=== PATIENT | female | born 1960 | race Caucasian/White ===

== ENCOUNTER → 2020-05-14 13:35 | Outpatient (CLI) | payer OTHER, SELFPAY ==
[2020-05-14 16:14] LABS: Coronavirus 19 IgG Antibody Negative (Negative); Coronavirus 19 IgM Antibody Negative (Negative)
== END ==
PROVIDERS: Visit Provider Internal Medicine Gastroenterology
DX: Z01.818 Encounter for other preprocedural examination (principal); Z12.11 Encounter for screening for malignant neoplasm of colon; R10.9 Unspecified abdominal pain
CPT/HCPCS: 36415; 86328

== ENCOUNTER 2020-05-17 08:56 | Day surgery (SDC) | payer OTHER, SELFPAY ==
[2020-05-14 10:48] VITALS: BMI 20.1
[2020-05-17 09:11] VITALS: BP 129/70; PULSE 73; RESP 18; TEMP 36.5; O2SAT 98
--- NOTE | 2020-05-17 09:29 | P.PN_ITS ---
[facility] Anesthesia Checklist - Patient Identification Patient Identification: Arm Band, Verbal (Name & ) - Structural Data Admitted From: Home Planned Operative Procedure/s: Colonoscopy Consent for Planned Operative Procedure(s) Verified: Yes Verified Documents: Surgical Consent, History and Physical - NPO Status Verified Time NPO: 00:00 - Chart Verification Results Verified: None - Additional verifications Anesthesia Reactions: No - Airway Assessment C-Spine Mobility Assessed: Yes TMJ Mobility Assessed: Yes Dentition: Dentures-good fit (Upper) - Neurological Assessment Level of Consciousness: Awake, Alert, Appropriate, Follows Commands Hx Seizures: No Numbness or tingling in extremities: No - Anesthesia Plan Anesthesia Risk discussed: Yes Anesthesia Plan: Verified ASA Class: II Anesthesia Type: MAC [facility] History I have reviewed the patient's past medical history: Yes Medical History: Reports:: Asthma Denies:: Cancer, Diabetes Mellitus Type 1, Diabetes Mellitus Type 2, Internal Pacemaker, MRSA, Seizures *Have you ever received a pneumonia vaccine?: No *Have you received a flu vaccine this season?: Yes Anesthesia experience/problems:: None Other Surgeries: Yes: Hysterectomy-Partial, Tubal Ligation. No: Pacemaker Amputation: No Fractures: No - *Social History Last grade of school completed: Some college Smoking Status: Current every day smoker Tobacco Type: cigarettes # Packs/Day (cigarettes): 1 Alcohol Intake: never Substance Use Type: denies use *Occupational Status:: employed Housing: house Household Members: family *Travel in the last 8 weeks: None Family Hx:: Hypertension
[2020-05-17 09:33] VITALS: O2SAT 97
--- NOTE | 2020-05-17 10:01 | P.PCN_ITS ---
[facility] Procedure Note Procedure Note:: Colonoscopy Procedure Report: Colonoscopy with cold snare polypectomy and cold biopsies Endoscopist: Sarmad Leon II, MD Referring physician: Carlitos Ashraf MD Date of Procedure: May 17, 2020 Equipment: Olympus 180 variable stiffness pediatric colonoscope Sedation: MAC sedation Indication: Mrs. Ramirez is a 59-year-old female who is here for diagnostic colonoscopy. The patient has had crampy lower abdominal discomfort with urgency and primarily gassiness. She has had some change in bowel habits. She reports no rectal bleeding or weight loss. She has not seen any mucus with her stools. This began a couple of weeks ago and is beginning to subside. She has had prior hysterectomy. She reports no family history of colon cancer. This is her first colonoscopy. Procedure: Prior to the procedure, a history and physical exam was performed, and patient's medications and allergies were reviewed. The risks, benefits and alternatives of the sedation and procedure were discussed with the patient. All questions were answered and informed consent was obtained. The patient was brought to the procedure room. Patient identification and proposed procedure were verified by the physician and the nurse. The patient was placed in a left lateral decubitus position and the scope was passed under direct vision. Throughout the procedure, the patient's blood pressure, pulse, and oxygen saturations were monitored continuously. The colonoscopy was accomplished without difficulty. The patient tolerated the procedure well. Findings: On digital rectal examination there was normal rectal tone. There were no external hemorrhoids. The colonoscope was introduced through the anal canal to the rectum and advanced to the cecum. The ileocecal valve and appendiceal orifice were identified. The scope was advanced a short distance into the ileum which appeared grossly normal. The scope was then withdrawn into the colon. The cecum was normal. There were a total of 4 colon polyps (ascending x1 (4 mm), descending x1 (6 mm), sigmoid x1 (3-4 mm) and rectosigmoid x1 (5-6 mm)) which were all removed via cold snare polypectomy. There were extensive scattered diverticuli throughout the descending and sigmoid colon (LEFT colon). Within the sigmoid colon there was pericolonic adhesions and some evidence of haustral edema and luminal narrowing focally consistent with chronic sigmoid diverticulitis. Cold biopsies were taken in this region of focal chronic diverticulitis. The rectum itself was normal. Upon retroflexion within the rectum there were grade 1-2 internal hemorrhoids. The preparation was excellent throughout with [place] Preparation Score of 9. The cecal time was 13 minutes. Impression: 1. Diminutive colonic polyps x4 2. Extensive left-sided diverticulosis with evidence of chronic sigmoid diverticulitis 3. Grade 1-2 internal hemorrhoids Plan: I do feel that the patient's symptoms are secondary to chronic diverticulitis/spastic diverticular disease. We will discuss dietary measures, bulk fiber supplementation and probiotic therapy. I will follow up the polyp pathology and recommend repeat colonoscopy again in 5 years based upon the polyp histology.
[2020-05-17 10:05] VITALS: BP 138/60; PULSE 63; RESP 12; TEMP 36.4; O2SAT 99
[2020-05-17 10:15] VITALS: BP 140/54; PULSE 67; RESP 16; O2SAT 98
[2020-05-17 10:25] VITALS: BP 129/83; PULSE 62; RESP 16; O2SAT 98
[2020-05-17 10:35] VITALS: BP 130/71; PULSE 68; RESP 16; O2SAT 100
== END 2020-05-17 10:51 | disposition home or self-care (01) ==
LOC: OUTP 08:58
PROVIDERS: PCP Family Medicine; Visit Provider Internal Medicine Gastroenterology
PROC: 0DJD8ZZ Inspection of Lower Intestinal Tract, Via Natural or Artificial Opening Endoscopic (ICD-10-PCS; CPT 45378; principal; 2020-05-17 10:00)
DX: K63.5 Polyp of colon (principal); K57.30 Diverticulosis of large intestine without perforation or abscess without bleeding; K64.0 First degree hemorrhoids; Z90.710 Acquired absence of both cervix and uterus; J45.909 Unspecified asthma, uncomplicated; Z72.0 Tobacco use; Z88.2 Allergy status to sulfonamides; Z80.3 Family history of malignant neoplasm of breast
CPT/HCPCS: 45385; 45380

== ENCOUNTER 2023-10-17 18:05 | Outpatient (CLI) | payer BC, MEDICARE, SELFPAY ==
[2023-10-17 19:19] LABS: Basophils # 0.1 K/mm3 (0-0.2); Basophils % 0.9 % (0.1-2.0); Eosinophils # 0.1 K/mm3 (0.0-0.4); Eosinophils % 1.5 % (0.1-12.0); Hematocrit 45.3 % (37.0-47.0); Lymphocytes # 1.7 K/mm3 (0.7-4.5); Lymphocytes % 26.8 % (10-50); Mean Corpuscular HGB Conc 33.2 g/dL (31.8-35.4); Mean Corpuscular Hemoglobin 32.5 pg (27.0-31.2); Mean Corpuscular Volume 97.9 fl (81-99); Mean Platelet Volume 9.2 fl (7.4-10.4); Monocytes # 0.5 K/mm3 (0.1-1.0); Monocytes % 7.6 % (1.7-9.3); Neutrophils # 3.9 K/mm3 (1.8-7.8); Neutrophils % 63.2 % (37.0-80.0); Platelet Count 209 K/mm3 (142-424); Red Blood Count 4.62 M/mm3 (4.20-5.40); Red Cell Distribution Width 12.4 % (11.5-17.5); White Blood Count 6.2 K/mm3 (4.8-10.8)
[2023-10-17 20:02] LABS: Chloride 103 mmol/L (98-107); Potassium 4.5 mmoL/L (3.5-5.1); Sodium 137 mmol/L (136-145)
[2023-10-17 20:05] LABS: Alanine Aminotransferase 18 U/L (12-78); Albumin Level 3.8 g/dl (3.5-5.0); Albumin/Globulin Ratio 1.4 (1.1-1.8); Alkaline Phosphatase 97 U/L (38-126); Anion Gap 10.5 mEq/L (5-15); Aspartate Amino Transferase 29 U/L (14-36); Bilirubin,Total 0.5 mg/dl (0.2-1.3); Blood Urea Nitrogen 12 mg/dl (7-17); Carbon Dioxide 28 mmol/L (22.0-30.0); Estimated Glomerular Filt Rate 84 ml/min (>60); GFR (African American) 102 ML/MIN (>60); Globulin 2.8 g/dL (1.3-3.2); Total Protein,Serum 6.6 g/dl (6.3-8.2)
[2023-10-17 20:06] LABS: Calcium 9.1 mg/dl (8.4-10.2); Glucose 91 mg/dl (74-100)
== END 2023-10-17 23:59 ==
PROVIDERS: PCP Nurse Practitioner; Visit Provider Nurse Practitioner
DX: R10.32 Left lower quadrant pain; Z87.19 Personal history of other diseases of the digestive system; R09.81 Nasal congestion
CPT/HCPCS: 80053; 85025

== ENCOUNTER 2024-11-05 09:12 | Outpatient (CLI) | payer MEDICARE, OTHER, SELFPAY ==
[2024-11-05 17:57] LABS: Basophils # 0.1 K/mm3 (0-0.2); Basophils % 0.8 % (0.1-2.0); Eosinophils # 0.3 K/mm3 (0.0-0.4); Eosinophils % 4.1 % (0.1-12.0); Hematocrit 42.9 % (37.0-47.0); Hemoglobin 14.5 g/dL (12.2-16.2); Lymphocytes # 2.6 K/mm3 (0.7-4.5); Lymphocytes % 35.1 % (10-50); Mean Corpuscular HGB Conc 33.8 g/dL (31.8-35.4); Mean Corpuscular Hemoglobin 31.9 pg (27.0-31.2); Mean Corpuscular Volume 94.3 fl (81-99); Mean Platelet Volume 10.2 fl (7.4-10.4); Monocytes # 0.5 K/mm3 (0.1-1.0); Monocytes % 7.4 % (1.7-9.3); Neutrophils # 3.8 K/mm3 (1.8-7.8); Neutrophils % 52.3 % (37.0-80.0); Platelet Count 208 K/mm3 (142-424); Red Blood Count 4.55 M/mm3 (4.20-5.40); Red Cell Distribution Width 11.3 % (11.5-17.5); White Blood Count 7.3 K/mm3 (4.8-10.8)
[2024-11-05 18:36] LABS: Alanine Aminotransferase 16 U/L (12-78); Albumin Level 4.1 g/dl (3.5-5.0); Albumin/Globulin Ratio 1.8 (1.1-1.8); Alkaline Phosphatase 80 U/L (38-126); Aspartate Amino Transferase 28 U/L (14-36); Bilirubin,Total 0.4 mg/dl (0.2-1.3); Blood Urea Nitrogen 15 mg/dl (7-17); Calcium 9.5 mg/dl (8.4-10.2); Carbon Dioxide 23 mmol/L (22.0-30.0); Chloride 105 mmol/L (98-107); Estimated Glomerular Filt Rate 100 ml/min (>60); GFR (African American) 121 ML/MIN (>60); Globulin 2.3 g/dL (1.3-3.2); Glucose 91 mg/dl (74-100); Sodium 137 mmol/L (136-145); Total Protein,Serum 6.4 g/dl (6.3-8.2)
[2024-11-05 19:10] LABS: Thyroid Stimulating Hormone 1.47 uIU/mL (0.465-4.68)
== END 2024-11-05 23:59 | disposition home or self-care (01) ==
LOC: LAB.DROPOF 11-06 09:13
PROVIDERS: PCP Nurse Practitioner; Visit Provider Nurse Practitioner
DX: R91.1 Solitary pulmonary nodule (principal); R63.4 Abnormal weight loss; Z68.1 Body mass index [BMI] 19.9 or less, adult
CPT/HCPCS: 80053; 84443; 85025

== ENCOUNTER 2025-06-29 15:50 | Outpatient (CLI) | payer MEDICARE, OTHER, SELFPAY ==
--- OUTSIDE RECORDS SUMMARY | 2025-05-06 15:45 | XMS_ITS | Encounter Summary ---
Author Organization [facility] Address [address] [place] [id number] Care Team Providers Care Geospatial Imagery Intelligence Analyst Name Role Phone Julius Poe DO Unavailable [phone] Rosa Rey MD Primary Care Provider [phone] Reason for Visit * Reason Comments Follow-up Encounter Details Date Type Department Care Team (Late st Contact Info) Description 05/06/2025 3:45 PM EDT Office Visit [facility] [address] [address] Wilner Chaparro MD [address] [address] Tendinitis of left rotator cuff (Primary Dx) Social History Tobacco Use Types Packs/Day Years Used Date Smoking Tobacco: Every Day Cigarettes 0.5 52 Started: 06/22/1973 Passive Smoke Exposure: Current Smokeless Tobacco: Never Alcohol Use Standard Drinks/Week Comments Yes 2 (1 standard drink = 0.6 oz pur e alcohol) [facility] Utilities Answer Date Recorded In the past 12 months has [employer] electric, gas, oil, or water company threatened to shut off services in your home? No 01/09/2025 AUDIT-C Answer Date Recorded Frequency of Alcohol Consumption Never 04/30/2020 Average Number of Drinks Not on file 020 Frequency of Binge Drinking Not on file 04/08 Overall Financial Resource Strain (CARDIA) Answe r Date Recorded How hard is it for you to pa y for the very basics like food, housing, medical care, and heating? Not hard at all 01/09/2025 PHQ-2 Answer Date Recorded PHQ-2 Total Score 0 01/09/2025 [facility] - Occupational Stress Questionnaire Answer Date Recorded Do you feel stress - tense, restless, nervous, or anxious, or unable to sleep at night because your mind is troubled all the time - these days? To some extent 01/09/2025 Exercise Vital Sign Answer Date Recorde d On average, how many days pe r week do you engage in moderate to strenuous exercise (like a brisk walk)? 0 days 01/09/2025 On average, how many minutes do you engage in exercise at this level? 0 min 01/09/2025 Hunger Vital Sign Answer Date Recorded Within the past 12 months, y ou worried that your food would run out before you got the money to buy more. Never true 01/10/20 25 Within the past 12 months, t he food you bought just didn't last and you didn't have money to get more. Never true 01/09/2025 PRAPARE - Transportation Answer Date Re corded In the past 12 months, has l ack of transportation kept you from medical appointments or from getting medications? No 06/08 In the past 12 months, has l ack of transportation kept you from meetings, work, or from getting things needed for daily living? No 06/23/2023 [facility] IP Transportation Answer D ate Recorded In the past 12 months, has l ack of reliable transportation kept you from medical appointments, meetings, work or from getting things needed for daily living? No 01/09/2025 Comments No Sex and Gender Information Value Date Recorded Sex Assigned at Not on file Legal Sex Female 2:33 AM EDT Gender Identity Not on file Sexual Orientation Not on file documented as of this encounter Last Filed Vital Signs Vital Sign Reading Time Taken Comments Blood Pressure - - Pulse - - Temperature - - Respiratory Rate - - Oxygen Saturation - - Inhaled Oxygen Concentration - - Weight 46.7 kg (103 lb) 05/06/2025 4:04 PM EDT Height 170.2 cm (5' 7 ) 05/06/2025 4:04 PM EDT Body Mass Index 16.13 05/06/2025 4:04 PM EDT documented in this encounter Functional Status * Is the person deaf or does he/she have serious difficulty hearing? Answer Date of Assessment Author No 01/09/2025 3:34 PM EDT Colleen Malik RN * Is the person blind or does he/she have serious difficulty seeing even when wearing glasses? Answer Date of Assessment Author No 01/09/2025 3:34 PM EDT Colleen Malik RN * Does this person have serious difficulty walking or climbing stairs? Answer Date of Assessment Author No 01/09/2025 3:34 PM EDT Colleen Malik RN * Does this person have difficulty dressing or bathing? Answer Date of Assessment Author No 01/09/2025 3:34 PM EDT Colleen Malik RN * Because of a physical, mental or emotional condition, does this person have difficulty doing errands alone such as visiting a doctor's office or shopping? Answer Date of Assessment Author No 01/09/2025 3:34 PM EDT Colleen Malik RN documented as of this encounter Mental Status * Because of a physical, mental or emotional condition, does this person have serious difficulty concentrating, remembering or making decisions? Answer Entry Date Author No 01/09/2025 3:34 PM EDT Colleen Malik RN documented in this encounter Progress Notes * Wilner Chaparro MD - 05/06/2025 5:02 PM EDT DATE OF SERVICE: 05/06/2025 HISTORY: Ms. Ramirez returns today for reevaluation of her left shoulder. She did get her lower lobectomy of her lung a couple of months ago. She had a seizure. It was pretty rough, but now things are doing a lot better as far as that goes. She did lose a lot of weight. She notes the shoulder is doing great. The shot helped her a lot. She is back at work. PHYSICAL EXAMINATION: She has full range of motion of that shoulder. No pain. No instability. Good strength. IMPRESSION: Left shoulder impingement syndrome, resolved. PLAN: She is doing very well. We did talk about another injection but decided to hold off on that. I will have her continue her home exercise program, icicass when necessary, but progression of activities. I will plan on seeing her back if she has any problems. She likes that plan. Wilner Chaparro MD lda TID: [id number] RECEIPT: [id number] CC: ROSA REY MD documented in this encounter Plan of Treatment Upcoming Encounters Date Type Department Care Team (Late st Contact Info) Description 07/21/2025 9:00 AM EDT Appointment [facility] [place] [address] Helena Magana MD [address] [place], [place] [id number] 07/21/2025 9:30 AM EDT Appointment [facility] [address] [place], [place] [id number] Helena Magana MD [address] [place], [place] [id number] documented as of this encounter Visit Diagnoses Diagnosis Tendinitis of left rotator cuff- Primary Disorders of bursae and tendons in shoulder region, unspecified documented in this encounter Care Teams Geospatial Imagery Intelligence Analyst Relationship Specialty Start Date End Date Rosa Rey MD [address] [facility] [address] [place] [address] PCP - General Family Medicine 12/17/24 Julius Poe DO [address] [place] [address] Hospitalist 06/22/23 documented as of this encounter
[2025-06-29 15:33] LABS: Hematocrit 44.0 % (37.0-47.0); Hemoglobin 14.9 g/dL (12.2-16.2); Immature Granulocytes % 0.3 %; Mean Corpuscular HGB Conc 33.9 g/dL (31.8-35.4); Mean Corpuscular Hemoglobin 32.2 pg (27.0-31.2); Mean Corpuscular Volume 95.0 fl (81-99); Nucleated Red Blood Cells % 0 %; Platelet Count 203 K/mm3 (142-424); Red Blood Count 4.63 M/mm3 (4.20-5.40); Red Cell Distribution Width-SD 39.3 fL; White Blood Count 7.4 K/mm3 (4.8-10.8)
--- OUTSIDE RECORDS SUMMARY | 2025-06-29 15:52 | XMS_ITS | Clinical Summary ---
Author Organization [facility] Address [address] [facility] [place] [place] [address] Phone Care Team Providers Care Dehydration Plant Operator Name Role Phone Julius Poe DO Unavailable [phone] Agustín Ashraf MD Primary Care Provider [phone] Allergies Active Allergy Reactions Criticality Noted Date Comments Corticosteroids (Glucocorticoids) Shortness Of Breath 05/12/2018 Oxycodone-Acetaminophen Itching 06/22/2023 Hand and feet warm and itchy Sulfa (Sulfonamide Antibiotics) Swelling 05/12/2018 Medications aspirin 81 mg Oral Tablet, Chewable Take 1 Tablet by mouth daily (with breakfast). 30 Tablet 2 12/18/2024 5:24 PM EDT 12/19/2024 Active atorvastatin (LIPITOR) 40 mg Oral Tablet Take 1 Tablet by mouth nightly. 30 Tablet 2 12/18/2024 5:24 PM EDT 12/18/2024 Active metoprolol succinate (TOPROL-XL) 25 mg Oral Tablet Sustained Release 24 hr Take one-half tablet by mouth nightly. 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 Lung nodule 12/31/2024 NSVT (nonsustained ventricular tachycardia) 12/06 Other chest pain 12/17/2024 Convulsive syncope 12/17/2024 Tobacco abuse 12/17/2024 New onset seizure 12/17/2024 Seizure-like activity 12/16/2024 Elevated troponin 12/16/2024 Left flank pain 06/22/2023 Cholelithiasis 06/22/2023 Bilateral adrenal adenomas 06/22/2023 Resolved Problems Problem Noted Date Diagnosed Date Resolved Date Acute pancreatitis without i nfection or necrosis 06/22/2023 12/16/2024 Encounters Date Type Department Care Team Description 05/06/2025 3:45 PM EDT Office Visit [facility] [address] [place] [address] Wilner Chaparro MD Tendinitis of left rotator cuff (Primary Dx) from Last 3 Months Immunizations Immunization Administration Dates Next Due Influenza, Split (Incl. María fied Surface Antigen) 07/26/2024,08/12/2023,08/09/2022,2019,09/03/2019 Tdap 2014 Surgical History Surgery Date Site/Laterality Comments HYSTERECTOMY TUBAL LIGATION BRONCHOSCOPY CARDIAC CATHETERIZATION COLONOSCOPY THORACOSCOPY 01/08/2025 Right right Robotic Assisted thoracic Surgery right lower lobe lobectomy with mediastinal lymph node dissection; Surgeon: Helena Magana MD; Location: [facility]; Service: Thoracic LYMPH NODE DISSECTION 01/08/2025 Right Surgeon: Helena Magana MD; Location: [facility]; Service: Thoracic Medical History Medical History Date Comments Asthma exercise induced SC (myocardial infarction) (HCC) Acute pancreatitis without i nfection or necrosis 06/22/2023 Hyperlipidemia Seizures (HCC) 12/16/2024 after bronchosco py at home Family History Medical History Relation Name Comments Anesth Problems Neg Hx Relation Name Status Comments Daughter Alive Social History Tobacco Use Types Packs/Day Years Used Date Smoking Tobacco: Every Day Cigarettes 0.5 52 Started: 06/22/1973 Passive Smoke Exposure: Current Smokeless Tobacco: Never Alcohol Use Standard Drinks/Week Comments Yes 2 (1 standard drink = 0.6 oz pur e alcohol) [facility] Utilities Answer Date Recorded In the past 12 months has e electric, gas, oil, or water company threatened [...] Date Recorded PHQ-2 Total Score 0 01/09/2025 [facility] - Occupational Stress Questionnaire Answer Date Recorded [...] things needed for daily living? No 06/23/2023 [facility] IP Transportation Answer D ate Recorded In [...] on file Sexual Orientation Not on file Obstetrics History Last Filed Vital Signs Vital Sign Reading Time Taken Comments Blood Pressure 145/70 01/20/2025 10:28 AM EDT Pulse 67 01/20/2025 10:28 AM EDT Temperature 36.8 C (98.2 F) 01/20/2025 10:28 AM EDT Respiratory Rate 16 01/20/2025 10:28 AM EDT Oxygen Saturation 100% 01/20/2025 10:28 AM EDT Inhaled Oxygen Concentration - - Weight 46.7 kg (103 lb) 05/06/2025 4:04 PM EDT Height 170.2 cm (5' 7 ) 05/06/2025 4:04 PM EDT Body Mass Index 16.13 05/06/2025 4:04 PM EDT Plan of Treatment Upcoming Encounters Date Type Department Care Team (Late st Contact Info) Description 07/21/2025 9:00 AM EDT Appointment [facility] [address] [place], [place] [phone] Helena Magana MD [address] [facility] [place], [place] [phone] 07/21/2025 9:30 AM EDT Appointment [facility] [address] [place], [place] [id number] Helena Magana MD [address] [facility] [place], [place] [id number] Health Maintenance Due Date Last Done Comments Wellness Exam Medicare 1963 Hepatitis C Screening 1976 Cologuard 2003 Colon Cancer Screening 2003 Colonoscopy 2003 FIT 2003 Sigmoidoscopy 2003 Virtual Colonography 2003 Zoster (1 of 2) 2008 RSV or 60+ (1 - Risk 60-74 years 1-dose series) 2018 Pneumococcal Vaccine 50+ (2 of 2 - PCV) 06/11/2021 06/11/2020 Bone Density Screening 2023 Breast Cancer Screening 01/02/2025 01/02/2023 COVID-19 Vaccine (3 - season) 2025 03/21/2021, 02/28/2021 Influenza Vaccine (#1) 2025 , 08/12/2023, 08/09/2022, Additional history exists Low Dose Lung Cancer Screening 11/12/2025 11/12/2024, 12/13/2021 DTaP/TDaP/Td (4 - Td or Tdap) 06/11/2030 06/11/2020, 2014, 12/31/2010 Hepatitis B Vaccine Aged Out No longe r eligible based on patient's age to complete this topic Meningococcal B Vaccine Aged Out No l onger eligible based on patient's age to complete this topic Procedures Procedure Name Priority Date/Time Associated Diagnosis Comments CT CHEST W CONTRAST Routine 11/12/2024 7 :42 AM EST Solitary pulmonary nodule MM MAMMO DIGITAL LEIDY SCREEN BILAT Routine 01/02/2023 7:15 AM EDT Encounter for screening mammogram for malignant neoplasm of breast from Last 3 Months or Most Recently Relevant to Health Maintenance Results * CT CHEST W CONTRAST (11/12/2024 7:42 AM EST) Anatomical Region Laterality Modality Chest Computed Tomogra phy 11/12/2024 7:42 AM EST Impressions 11/12/2024 11:54 AM EST Mild interval growth of a spiculated right lower lobe nodule, now measuring 10 mm. CODE Lung Management: Recommendations will be forthcoming from the multidisciplinary lung review board. Does not pertain to Thoracic Surgery or Oncology ordered scans. Note: Radiology results need to be interpreted within a comprehensive clinical context. If you have questions about the radiology report, please contact the office of the ordering clinician. Narrative 11/12/2024 11:[address] CHEST WITH CONTRAST, 11/12/2024 7:42 AM CLINICAL HISTORY: R91.1-Solitary pulmonary [id number]. COMPARISON: 12/13/2021 PROCEDURE COMMENTS: Multi detector CT scanning of the chest. Multiplanar reconstructions per protocol. Isovue 370 IV contrast given as recorded in EPIC. Dose 1 : CT DLP Total : 171.05 mGycm DLP Spiral Max : 167.5 mGycm Maximum CTDI Vol : 4.35 mGy FINDINGS: There is no axillary or mediastinal adenopathy. The heart chambers and great vessels without acute finding. The airways are grossly patent. There is no dense consolidation or pleural effusion. Pulmonary nodules: Spiculated 10 mm nodule superior segment right lower lobe (217), demonstrates mild interval growth when compared to 12/13/2021. No new suspicious pulmonary nodules. Coronary artery calcification: Mild. Right adrenal adenoma again noted. Procedure Note Deepak Posey MD - 11/12/2024 CT CHEST WITH CONTRAST, 11/12/2024 7:42 AM CLINICAL HISTORY: R91.1-Solitary pulmonary [id number]-CM. COMPARISON: 12/13/2021 PROCEDURE COMMENTS: Multi detector CT scanning of the chest. Multiplanar reconstructions per protocol. Isovue 370 IV contrast given as recorded inEPIC. Dose 1 : CT DLP Total : 171.05 mGycm DLP Spiral Max : 167.5 mGycm Maximum CTDI Vol : 4.35 mGy FINDINGS: There is no axillary or mediastinal adenopathy. The heartchambers and great vessels without acute finding. The airways are grossly patent. There is no dense consolidation orpleural effusion. Pulmonary nodules: Spiculated 10 mm nodule superior segment right lower lobe (217),demonstrates mild interval growth when compared to 12/13/2021. No new suspicious pulmonary nodules. Coronary artery calcification: Mild. Right adrenal adenoma again noted. IMPRESSION: Mild interval growth of a spiculated right lower lobe nodule, now measuring 10 mm. CODE Lung Management: Recommendations will be forthcoming from the multidisciplinary lung review board. Does not pertain to Thoracic Surgeryor Oncology ordered scans. Note: Radiology results need to be interpreted within a comprehensiveclinical context. If you have questions about the radiology report, please contactthe office of the ordering clinician. Sumi Roper [facility] IM CT ORDERABLES Final Result * MM MAMMO DIGITAL LEIDY SCREEN BILAT (01/02/2023 7:15 AM EDT) Anatomical Region Laterality Modality Breast Bilateral Mammography 01/02/2023 7:53 AM EDT Impressions 01/02/2023 7:53 AM EDT Negative (GME-[id number]-3) ~ RECOMMENDATION: Routine screening mammogram in 1 year. ~ DISCLAIMER * Any patient with a palpable abnormality, unexplained by breast imaging, should be managed on clinical basis by the attending physician. * Breast imaging has a false negative rate of 15%. * The patient was notified by mail of the results of this examination. *The patient's information was entered into a reminder system with a target due date for the next mammogram, in accordance with the [employer] and the Society of Breast Imaging recommendations. Narrative 01/02/2023 7:53 AM EDT Procedure:MM MAMMO DIGITAL LEIDY SCREEN BILAT ~ Reason for exam: screening, asymptomatic. Z12.31-Encounter for screening mammogram for malignant neoplasm of [id number] ~ MM MAMMO DIGITAL LEIDY SCREEN BILAT Bilateral CC and MLO view(s) were taken. There are scattered fibroglandular densities. Prior study comparison: None. This is a baseline mammogram. No mammographic evidence of malignancy. ~ Procedure Note Alejandra Dumas MD - 01/02/2023 Procedure:MM MAMMO DIGITAL LEIDY SCREEN BILAT ~ Reason for exam: screening, asymptomatic. Z12.31-Encounter for screening mammogram for malignant neoplasm of [id number] ~ MM MAMMO DIGITAL LEIDY SCREEN BILAT Bilateral CC and MLO view(s) were taken. There are scattered fibroglandular densities. Prior study comparison: None. This is a baseline mammogram. No mammographic evidence of malignancy. ~ IMPRESSION: Negative (IGR-Flrsprxu-3) ~ RECOMMENDATION: Routine screening mammogram in 1 year. ~ DISCLAIMER * Any patient with a palpable abnormality, unexplained by breast imaging, should be managed on clinical basis by the attending physician. * Breast imaging has a false negative rate of 15%. * The patient was notified by mail of the results of this examination. *The patient's information was entered into a reminder system with atarget due date for the next mammogram, in accordance with the [employer] and the Society of Breast Imaging recommendations. Sumi Roper APRN IMG MAMMOGRAPHY ORDERABLES Fin al Result from Last 3 Months or Most Recently Relevant to Health Maintenance Insurance MEDICARE [place] PART A AND B [employer] [place] PART A AND B Member Subscriber Plan / Payer (Ef fective 2023-) Name:Maria T Ramirez Member ID:[id number] Relation to Subscriber:Self Name:Maria T Ramirez Subscriber ID:[id number] Payer ID:Not on file Group ID:Not on file Type:Not on file Address: [address] [place] MEDIC[place] PART A AND B [employer] [facility] Advance Directives For more information, please contact: [phone] * Full Code (Latest Code Status on File) Date Activated Date Inactivated Comments 01/08/2025 4:27 PM 01/09/2025 8:43 PM * Full Code Date Activated Date Inactivated Comments 12/16/2024 10:26 PM 12/18/2024 11:29 PM * Full Code Date Activated Date Inactivated Comments 06/22/2023 11:21 PM 06/23/2023 10:50 PM Care Teams Dehydration Plant Operator Relationship Specialty Start Date End Date Agustín Ashraf MD [address] [facility] [address] [place] [address] PCP - General Family Medicine 12/17/24 Julius Poe DO [address] [place] [address] Hospitalist 06/22/23
--- OUTSIDE RECORDS SUMMARY | 2025-06-29 15:52 | XMS_ITS | Clinical Summary ---
Author Organization [facility] Address [facility] [place] [address] Care Team Providers Care Continuous Improvement Consultant Name Role Phone Unavailable Primary Care Provider Unavailabl e Source Comments This information has been disclosed to you from confidential records protectedfrom disclosure by state law. You shall make no further disclosure of thisinformation without the specific, written, and informed release of theindividual to whom it pertains, or as otherwise permitted by law. A generalauthorization for the release of medical or other information is not sufficientfor the purposes of therelease of HIV test results or diagnoses. [id number] Allergies No known active allergies Medications triamterene-hctz (MAXZIDE) 75-50 mg tablet TAKE ONE TABLET BY MOUTH EVERY DAY 30 tablet 0 08/23/2012 Active Social History Tobacco Use Types Packs/Day Years Used Date Smoking Tobacco: Never Assessed Comments Unknown Sex and Gender Information Value Date Recorded Sex Assigned at Not on file Legal Sex Female 11:14 PM EST Gender Identity Not on file Sexual Orientation Not on file Plan of Treatment Not on file
[2025-06-29 16:07] LABS: Albumin Level 3.9 g/dl (3.5-5.0); Chloride 103 mmol/L (98-107)
[2025-06-29 16:08] LABS: Potassium 3.8 mmoL/L (3.5-5.1); Sodium 139 mmol/L (136-145)
[2025-06-29 16:10] LABS: Alanine Aminotransferase 14 U/L (12-78); Anion Gap 9.8 mEq/L (5-15); Aspartate Amino Transferase 30 U/L (14-36); Blood Urea Nitrogen 9 mg/dl (7-17); Carbon Dioxide 30 mmol/L (22.0-30.0); Creatinine,Serum 0.60 mg/dl (0.52-1.04); Estimated Glomerular Filt Rate 100 ml/min (>60); GFR (African American) 121 ML/MIN (>60)
[2025-06-29 16:11] LABS: Albumin/Globulin Ratio 1.6 (1.1-1.8); Alkaline Phosphatase 71 U/L (38-126); Bilirubin,Total 0.4 mg/dl (0.2-1.3); Calcium 9.3 mg/dl (8.4-10.2); Globulin 2.5 g/dL (1.3-3.2); Glucose 88 mg/dl (74-100); Total Protein,Serum 6.4 g/dl (6.3-8.2)
[2025-06-29 16:40] LABS: Thyroid Stimulating Hormone 1.04 uIU/mL (0.465-4.68)
[2025-06-29 17:37] LABS: Vitamin B12 314 pg/mL (239-931)
== END 2025-06-29 23:59 | disposition home or self-care (01) ==
LOC: LAB.DROPOF 15:50
PROVIDERS: PCP Nurse Practitioner; Visit Provider Nurse Practitioner
DX: R63.4 Abnormal weight loss (principal); R63.0 Anorexia; Z11.59 Encounter for screening for other viral diseases
CPT/HCPCS: 80053; 82607; 84443; 85025; 87389

== ENCOUNTER 2025-09-10 08:48 | Day surgery (SDC) | payer MEDICARE, OTHER, SELFPAY ==
--- NOTE | 2025-09-06 11:05 | EXP.HP ---
History of Present Illness *Admission Date: 09/10/25 *History of present illness: Mrs. Ramirez is a 65-year-old female who is here for screening/surveillance colonoscopy secondary to a personal history of adenomatous colon polyps. The patient did have an initial colonoscopy with me in May 2020 and had 4 colon polyps (tubular adenomas x 3/hyperplastic polyp x 1) removed. The patient reports no family history of colon cancer. The examination is deemed medically necessary for screening/surveillance colonoscopy. The patient has been seen, interviewed and examined prior to the procedure by both myself and the anesthesia provider. [facility] Disclaimer: The information contained in this section may have been updated after the patient was seen, as this information can be updated by other users. Medical History Loss of appetite Weight loss of more than 10% body weight Colon polyp Lymphadenopathy of right cervical region Left shoulder pain Lung nodule History of diverticulitis Personal history of smoking Surgical History History of lobectomy of lung History of colonoscopy (~2019) Family History Mother Malignant hyperthermia Daughter Family history of diabetes mellitus type II Social History Smoking Status: Current every day smoker tobacco type: cigarettes packs per day: 1 second hand exposure: No alcohol intake: never substance use type: denies use current occupational status: employed Travel in the last 8 weeks?: None household members: family housing: house current occupation: [employer] current occupational exposures/hazards: No caffeine: Yes Have you lived/traveled outside US in past 30 days?: No Contact w/someone who lives/traveled outside US past 30 days?: No Exposure to someone with infectious disease in past 14 days?: No Do you have a fever (greater than 100.4 F or 38 C)?: No Have you tested positive for COVID-19?: No Exposed to someone with COVID-19 in past 14 days?: No Do you have a sore throat?: No Do you have a cough?: No Do you have any weakness?: No Do you have any diarrhea?: No Are you experiencing any unusual bleeding?: No Do you have any muscle aches/pain?: No Do you have any abdominal pain?: No Are you experiencing loss of taste or smell?: No Other Medical History Have you received the Flu Vaccine for this season: Yes Have you received the Pneumonia Vaccine: Yes Review of Systems Review of Systems Review of systems (narrative): Negative *Cardiovascular Comments: Negative *Gastrointestinal Comments: Negative *Genitourinary Comments: Negative *Musculoskeletal Comments: Negative *Neurologic Comments: Negative Meds Home Medications and Allergies Home Medications ?Medication ?Instructions ?Recorded ?Confirmed ?Type sodium,potassium,mag sulfates 17.5 See Rx Instructions PO .COMPLEX 08/24/25 Rx gram-3.13 gram-1.6 gram oral soln #354 mL (Suprep Bowel Prep Kit) New Prescriptions to Start Prescriptions: Allergies Allergy/AdvReac Type Severity Reaction Status Date / Time Sulfa (Sulfonamide Allergy Intermediate Swelling Verified 09/10/25 09:21 Antibiotics) of Lip/Tongue/Throat Exam *Routine HEENT Exam Head: Present normocephalic Eye: Present EOMI and PERRL ENT: Present mucous membranes moist *Routine Neck Exam Neck: Present supple *Routine Respiratory Exam Respiratory: Present CTA bilaterally *Routine Cardiovascular Exam Cardiovascular: Present RRR *Routine Abdominal Exam Abdominal: Present soft and normoactive bowel sounds; Absent tenderness *Routine Rectal Exam Rectal:: deferred *Routine Genitalia Exam Genitalia:: deferred *Routine Extremities Exam Extremities: Absent cyanosis, clubbing or edema *Routine Skin Exam Skin: Present warm; Absent rash *Routine Neurological Exam Neurological: Present alert and oriented X3 Assessment and Plan *Assessment and plan (1) Personal history of adenomatous and serrated colon polyps: Status: Acute Category: Medical Code(s): Z86.0101 - Personal history of adenomatous and serrated colon polyps (2) Screening for colon cancer: Status: Acute Category: Medical Code(s): Z12.11 - Encounter for screening for malignant neoplasm of colon Plan A/P: 1. Personal history of adenomatous colon polyps is the preprocedural diagnosis. The patient will be anesthetized/sedated using MAC sedation. The patient has been seen and examined. Cardiac and lung assessment prior to the examination is stable. Proceed with planned screening/surveillance colonoscopy.
[2025-09-08 10:16] VITALS: BMI 15.3
--- NOTE | 2025-09-10 06:48 | P.PCN_ITS ---
[facility] Procedure Note Date: 09/10/25 Time: 11:42 Procedure Note:: Sigmoidoscopy procedure Report: Sigmoidoscopy with snare cautery and Endo Clip placement Endoscopist: Sarmad Leon II, MD Referring physician: Carlitos Ashraf MD Date of Procedure: September 10, 2025 Equipment: Olympus [id number] adult colonoscope Sedation: MAC sedation Indication: Mrs. Ramirez is a 65-year-old female who is here for screening/surveillance colonoscopy secondary to a personal history of adenomatous colon polyps. The patient did have an initial colonoscopy with wi in May 2020 and had 4 colon polyps (tubular adenomas x 3/hyperplastic polyp x 1) removed. The patient reports no abdominal pain, weight loss or change in her bowel habits. She will occasionally see a spot of blood from internal hemorrhoids. The patient reports no family history of colon cancer. The examination is deemed medically necessary for screening/surveillance colonoscopy. Procedure: Prior to the procedure, a history and physical exam was performed, and patient's medications and allergies were reviewed. The risks, benefits and alternatives of the sedation and procedure were discussed with the patient. All questions were answered and informed consent was obtained. The patient was brought to the procedure room. Patient identification and proposed procedure were verified by the physician and the nurse. The patient was placed in a left lateral decubitus position and the scope was passed under direct vision. Throughout the procedure, the patient's blood pressure, pulse, and oxygen saturations were monitored continuously. The sigmoidoscopy was accomplished without difficulty. The patient tolerated the procedure well. Findings: On digital rectal examination, there was normal to slightly diminished rectal tone. The scope was then inserted through the anal canal into the rectum and advanced to 30 to 35 cm. The sigmoid colon was markedly fixed (from prior hysterectomy and pericolonic adhesions). The adult colonoscope could not easily passed through this area of fixed sigmoid colon and rather than place patient at further risk, the colonoscope was not advanced beyond this area of fixed sigmoid colon. There were scattered diverticuli in the sigmoid colon. There was a 11 to 12 mm polyp in the distal rectum that was removed via snare cautery. A single Endo Clip was placed over the polypectomy site. Impression: 1. Incomplete colonoscopy/sigmoidoscopy secondary to marked sigmoid pericolonic adhesions/fixed sigmoid colon (from prior hysterectomy) 2. Rectal polyp (11 to 12 mm)?removed 3. Sigmoid diverticulosis Plan: Based upon her fixed sigmoid colon which was identified on last colonoscopy with me (which was a complete colonoscopy), we will need to determine whether continued surveillance is warranted because of risk with advancing colonoscope to a fixed area of colon. I will discuss the findings with the patient and family.
[2025-09-10 09:21] VITALS: BP 149/50; PULSE 56; RESP 16; TEMP 36.1; O2SAT 99
[2025-09-10] MEDS: LACTATED RINGERS 1000ML 1,000 ML 50 ML IV (09:30)
--- NOTE | 2025-09-10 09:51 | EXP.ANES.CKL ---
[facility] Disclaimer: The information contained in this section may have been updated after the patient was seen, as this information can be updated by other users. Medical History Loss of appetite Weight loss of more than 10% body weight Colon polyp Lymphadenopathy of right cervical region Left shoulder pain Lung nodule History of diverticulitis Personal history of smoking Surgical History History of lobectomy of lung History of colonoscopy (~2019) Family History Mother Malignant hyperthermia Daughter Family history of diabetes mellitus type II Social History Smoking Status: Current every day smoker tobacco type: cigarettes packs per day: 1 second hand exposure: No alcohol intake: never substance use type: denies use current occupational status: employed Travel in the last 8 weeks?: None household members: family housing: house current occupation: [employer] current occupational exposures/hazards: No caffeine: Yes Have you lived/traveled outside [place] in past 30 days?: No Contact w/someone who lives/traveled outside [place] past 30 days?: No Exposure to someone with infectious disease in past 14 days?: No Do you have a fever (greater than 100.4 F or 38 C)?: No Have you tested positive for COVID-19?: No Exposed to someone with COVID-19 in past 14 days?: No Do you have a sore throat?: No Do you have a cough?: No Do you have any weakness?: No Do you have any diarrhea?: No Are you experiencing any unusual bleeding?: No Do you have any muscle aches/pain?: No Do you have any abdominal pain?: No Are you experiencing loss of taste or smell?: No [facility] Anesthesia Checklist Patient Identification Patient Identification: Arm Band and Verbal (Name & ) Structural Data Admitted From: Home Planned Operative Procedure/s: Colonoscopy Consent for Planned Operative Procedure(s) Verified: Yes Verified Documents: Surgical Consent NPO Status Verified Time NPO: 00:00 Additional verifications Anesthesia Reactions: No Airway Assessment Mallampati Score:: Class II C-Spine Mobility Assessed: Yes TMJ Mobility Assessed: Yes Dentition: Good Dentition (Top denture, bottom dentition ok) Neurological Assessment Level of Consciousness: Awake, Alert and Appropriate Hx Seizures: No Numbness or tingling in extremities: No Anesthesia Plan Anesthesia Risk discussed: Yes Anesthesia Plan: Verified ASA Class: III Anesthesia Type: MAC
[2025-09-10 11:42] VITALS: BP 111/59; PULSE 64; RESP 18; TEMP 36.2; O2SAT 100
[2025-09-10 11:52] VITALS: BP 127/61; PULSE 56; RESP 18; O2SAT 98
[2025-09-10 12:02] VITALS: BP 119/65; PULSE 56; RESP 18; O2SAT 99
[2025-09-10 12:15] VITALS: BP 118/70; PULSE 52; RESP 18; O2SAT 97
== END 2025-09-10 12:15 | disposition home or self-care (01) ==
PROVIDERS: PCP Family Medicine; Visit Provider Internal Medicine Gastroenterology
PROC: 0DJD8ZZ Inspection of Lower Intestinal Tract, Via Natural or Artificial Opening Endoscopic (ICD-10-PCS; CPT 45378; principal; 2025-09-10 10:30)
DX: Z12.11 Encounter for screening for malignant neoplasm of colon (principal); D12.8 Benign neoplasm of rectum; K57.30 Diverticulosis of large intestine without perforation or abscess without bleeding; R63.4 Abnormal weight loss; Z90.2 Acquired absence of lung [part of]; F17.210 Nicotine dependence, cigarettes, uncomplicated; Z86.0102 Personal history of hyperplastic colon polyps; Z86.0101 Personal history of adenomatous and serrated colon polyps; Z68.1 Body mass index [BMI] 19.9 or less, adult; Z88.2 Allergy status to sulfonamides
CPT/HCPCS: 45338; 88305; J2003; J2704; J7120